=== PATIENT | female | born 1960 | race Caucasian/White ===

== ENCOUNTER 2017-12-27 15:53 | Emergency (ER) | payer BC ==
[2017-12-27 16:23] VITALS: BP 110/76
--- NOTE | 2017-12-27 16:27 | ED ---
HPI Chest Pain - HPI Summary HPI Summary: 57 yr old female with chest tightness, SOB, dizziness, fatigue. Onset of symptoms was about two days ago. Chest tightness is presently 5/10, and she has pain in between her shoulder blade area. She has a history of HTN. Family history of CAD. - History of Current Complaint Chief Complaint: UCGeneralIllness Time Seen by Provider: 12/27/17 16:12 Hx Last Menstrual Period: 08/15/14 Pain Intensity: 5 - Allergy/Home Medications Allergies/Adverse Reactions: Allergies Allergy/AdvReac Type Severity Reaction Status Date / Time Zdlhfir-Bow-Zwi Reductase Allergy Leg Cramps Verified 12/27/17 16:03 Inhibitor Home Medications: Home Medications Amlodipine Besylate [Norvasc] 10 mg PO DAILY 12/27/17 [History Confirmed ] Lisinopril/HCTZ 20/25(NF) [Zestoretic 20/25(NF)] 1 tab PO DAILY 12/27/17 [ History Confirmed 12/27/17] PMH/Surg Hx/FS Hx/Imm Hx Previously Healthy: Yes Cardiovascular History: Reports: Hx Hypertension Denies: Hx Pacemaker/ICD Sensory History: Denies: Hx Hearing Aid Psychiatric History: Denies: Hx Panic Disorder - Surgical History Surgery Procedure, Year, and Place: [facility] Infectious Disease History: No Infectious Disease History: Denies: History Other Infectious Disease, Traveled Outside the [place] in Last 30 Days - Family History Known Family History: Positive: Cardiac Disease - Social History Occupation: Employed Full-time Lives: With Family Alcohol Use: None Substance Use Type: Reports: None Smoking Status (MU): Never Smoked Tobacco Review of Systems Positive: Fatigue. Negative: Fever, Chills Negative: Sore Throat, Nasal Discharge Positive: Chest Pain Positive: Shortness Of Breath All Other Systems Reviewed And Are Negative: Yes Physical Exam Triage Information Reviewed: Yes Vital Signs On Initial Exam: Initial Vitals Temp Pulse Resp BP Pulse Ox 98 F 82 18 110/76 99 12/27/17 16:16 12/27/17 16:16 12/27/17 16:16 12/27/17 16:16 12/27/17 16:16 Vital Signs Reviewed: Yes Appearance: Positive: Well-Appearing, No Pain Distress Skin: Positive: Warm, Skin Color Reflects Adequate Perfusion Head/Face: Positive: Normal Head/Face Inspection Eyes: Positive: EOMI Neck: Positive: Nontender Respiratory/Lung Sounds: Positive: Clear to Auscultation, Breath Sounds Present Cardiovascular: Positive: RRR. Negative: Murmur Abdomen Description: Positive: Nontender Musculoskeletal: Positive: Strength/ROM Intact Neurological: Positive: Sensory/Motor Intact, Alert, Oriented to Person Place, Time, CN Intact II-III Psychiatric: Positive: Normal - Argelia Coma Scale Best Eye Response: 4 - Spontaneous Best Motor Response: 6 - Obeys Commands Best Verbal Response: 5 - Oriented Coma Scale Total: 15 Diagnostics - Vital Signs Vital Signs Temp Pulse Resp BP Pulse Ox 12/27/17 16:16 98 F 82 18 110/76 99 - Laboratory Lab Statement: Any lab studies that have been ordered have been reviewed, and results considered in the medical decision making process. - EKG 12/27/17 Cardiac Rate: NL EKG Rhythm: Sinus Rhythm ST Segment: Normal Ectopy: None Chest Pain Course/Dx - Course Course Of Treatment: 57 yr old female with chest tightness, sob, and dizziness. Plan transfer by ambulance to the ER for eval. - Diagnoses Provider Diagnoses: Chest tightness, Shortness of breath Discharge - Discharge Plan Condition: Good Disposition: TRANS HIGHER LVL OF CARE FAC Referrals: LEANN Elias [Primary Care Provider] -
[2017-12-27] MEDS: Aspirin Low Dose CHEW TAB* 81 MG PO ONE (16:33)
== END 2017-12-27 16:42 | disposition short-term general hospital (02) ==
LOC: UCCORT 15:53
DX: R07.89 Other chest pain (principal); R06.02 Shortness of breath; I10 Essential (primary) hypertension; Z82.49 Family history of ischemic heart disease and other diseases of the circulatory system
CPT/HCPCS: 93005; 99203; A9270-GY; G0463

== ENCOUNTER 2018-04-02 18:47 | Emergency (ER) | payer BC ==
[2018-04-02 19:35] VITALS: BP 123/66
[2018-04-02] MEDS ORDERED: DOXYcycline CAP(*) 100 MG PO ONE (19:53)
--- NOTE | 2018-04-02 20:11 | UC ---
Skin Complaint HPI - HPI Summary HPI Summary: Pt c/o of tick bite to left lateral ankle, pt removed tick at home and thinks it has been attached for 24-48 hours. - History of Current Complaint Chief Complaint: UCSkin Time Seen by Provider: 04/02/18 19:45 Stated Complaint: TICK BITE Hx Obtained From: Patient Hx Last Menstrual Period: 08/15/14 ?: No Onset/Duration: Sudden Onset, Lasting Days Skin Exposure Onset/Duration: Days Ago Timing: Constant Onset Severity: Mild Current Severity: Mild Pain Intensity: 3 Pain Scale Used: 0-10 Numeric Location: Discrete - left lateral ankle Character: Redness Aggravating Factor(s): Nothing Alleviating Factor(s): Nothing Associated Signs & Symptoms: Positive: Negative Related History: Insect Bite/Sting - Allergy/Home Medications Allergies/Adverse Reactions: Allergies Allergy/AdvReac Type Severity Reaction Status Date / Time Mxmcrjm-Gvg-Mip Reductase Allergy Leg Cramps Verified 04/02/18 19:36 Inhibitor Home Medications: Home Medications Aspirin 81 mg CHEW TAB* [Aspirin Low Dose TAB*] 81 mg PO DAILY 04/02/18 [ History Confirmed 04/02/18] Ezetimibe TAB* [Zetia TAB*] 10 mg PO DAILY 04/02/18 [History Confirmed 04/02/18] Review of Systems Constitutional: Negative Skin: Other - mild erythema left lateral anle Eyes: Negative ENT: Negative Respiratory: Negative Cardiovascular: Negative Gastrointestinal: Negative Genitourinary: Negative Motor: Negative Neurovascular: Negative Musculoskeletal: Negative Neurological: Negative Psychological: Negative Is Patient Immunocompromised?: No All Other Systems Reviewed And Are Negative: Yes PMH/Surg Hx/FS Hx/Imm Hx Previously Healthy: Yes - Surgical History Surgical History: Yes Surgery Procedure, Year, and Place: [facility] - Family History Known Family History: Positive: Cardiac Disease - Social History Occupation: Employed Full-time Lives: With Family Alcohol Use: None Substance Use Type: None Smoking Status (MU): Never Smoked Tobacco Have You Smoked in the Last Year: No Physical Exam Triage Information Reviewed: Yes Appearance: Well-Appearing Vital Signs: Initial Vital Signs Temp 97.7 F 04/02/18 19:30 Pulse 69 04/02/18 19:30 Resp 16 04/02/18 19:30 BP 123/66 04/02/18 19:30 Pulse Ox 100 04/02/18 19:30 Vital Signs Reviewed: Yes Eye Exam: Normal ENT: Positive: Hearing grossly normal Neck exam: Normal Respiratory: Positive: No respiratory distress Musculoskeletal Exam: Normal Neurological Exam: Normal Psychological Exam: Normal Skin Exam: Other - mild erythema, lower lateral ankle. Course/Dx - Differential Diagnoses - Skin Complaint Differential Diagnoses: Tick Born Illness - Diagnoses Provider Diagnoses: tick bite. tick removed Discharge - Sign-Out/Discharge Documenting (check all that apply): Discharge/Admit/Transfer - Discharge Plan Condition: Stable Disposition: HOME Patient Education Materials: Tick Bite (ED) Referrals: Corina Pandya MD [Primary Care Provider] - If Needed - Billing Disposition and Condition Condition: STABLE Disposition: HOME
== END 2018-04-02 20:05 | disposition home or self-care (01) ==
LOC: UCCORT 18:47
DX: S90.862A Insect bite (nonvenomous), left foot, initial encounter (principal); W57.XXXA Bitten or stung by nonvenomous insect and other nonvenomous arthropods, initial encounter; Y93.9 Activity, unspecified; Y92.9 Unspecified place or not applicable; Z88.8 Allergy status to other drugs, medicaments and biological substances
CPT/HCPCS: 99212; A9270-GY; G0463

== ENCOUNTER 2023-04-27 05:38 | Observation (INO) ==
[~2023-04-27 05:38] MED LIST: Naloxone 0.4 mg VIAL 0.4 mg/ml 1 ml VIAL IV PRN; Ondansetron 4 mg VIAL 2 MG/ML 2 ml VIAL IV PRN; Tranexamic Acid 1,000 MG/10 ML 1,000 MG in NS 0.9% 50 ML 50 ML IV SCH; fentaNYL 100 mcg/2 ml 50 MCG/ML VIAL IV PRN
[2023-04-27] MEDS ORDERED: Lactated Ringers 1000 ml BAG 1,000 ML IV SCH (06:00)
[2023-04-27] MEDS ORDERED: Buffered Lidocaine 1% SYRIN 1 ml INTRADERM ONE (06:00)
[2023-04-27] MEDS ORDERED: ceFAZolin 2 GM in NS PREMIX 2 GM/100 ML BAG IVPB ONE (06:09)
[2023-04-27] MEDS ORDERED: Dexamethasone IV 4 MG/ML VIAL 1 ml VIAL ONE ×3 (06:40→08:44)
[2023-04-27] MEDS ORDERED: Bupivacaine 0.5% SDV PF 30ML VIAL ONE (06:40)
[2023-04-27] MEDS ORDERED: Midazolam 2 mg/2 ml VIAL 1 mg/ml 2 ml VIAL (2 mg) ONE ×2 (06:40→07:15)
[2023-04-27] MEDS ORDERED: ROPIVACAINE 5 MG/ML 30 ML BTL (0.5%) ONE (06:51)
[2023-04-27 07:05] LABS: Rapid COVID-19 Molecular Undetected (Undetected)
[2023-04-27] MEDS ORDERED: fentaNYL 100 mcg/2 ml 50 MCG/ML VIAL ONE (07:15)
[2023-04-27] MEDS ORDERED: HYDROmorphone 0.5 MG/0.5 ML SYRINGE ONE ×4 (07:58→08:22)
[2023-04-27] MEDS ORDERED: Acetaminophen IV 1 GM/100ML 1,000 MG/100 ML BAG IV ONE (08:08)
[2023-04-27] MEDS ORDERED: Magnesium Hydroxide LIQ 30 ML UDC PO PRN (08:35)
[2023-04-27] MEDS ORDERED: Ondansetron ODT 4 mg TAB 4 MG TAB PO PRN (08:35)
[2023-04-27] MEDS ORDERED: Lactulose 30 ml UDC PO PRN (08:35)
[2023-04-27] MEDS ORDERED: Morphine 2 MG/ML SYRINGE IV PRN (08:35)
[2023-04-27] MEDS ORDERED: Ondansetron 4 mg VIAL 2 MG/ML 2 ml VIAL ONE ×2 (08:44)
[2023-04-27] MEDS ORDERED: Lidocaine 2% PF 5 ML VIAL ONE (08:45)
[2023-04-27] MEDS: Lactated Ringers 1000 ml BAG 1,000 ML IV SCH ×2 (11:40→23:20)
[2023-04-27] MEDS ORDERED: Propofol 10 MG/ML 20 ML BTL ONE (13:31)
[2023-04-27] MEDS: Ondansetron 4 mg VIAL 2 MG/ML 2 ml VIAL IV PRN (14:34)
[2023-04-27] MEDS: Vitamin THERAPEUTIC TAB PO SCH (15:31)
[2023-04-27] MEDS: Magnesium Hydroxide LIQ 30 ML UDC PO SCH ×2 (15:31→20:07)
[2023-04-27] MEDS: ceFAZolin 1 GM ADVAN 1 GM in NS 0.9% 50 ML 50 ML IVPB SCH (17:59)
[2023-04-28] MEDS: ceFAZolin 1 GM ADVAN 1 GM in NS 0.9% 50 ML 50 ML IVPB SCH ×2 (00:08→08:45)
[2023-04-28] MEDS: Ondansetron 4 mg VIAL 2 MG/ML 2 ml VIAL IV PRN (03:23)
[2023-04-28 06:28] LABS: Hematocrit 31.3 % (35-45); Hemoglobin 10.9 g/dL (11.5-14.3); Mean Platelet Volume 8.3 fL (7.5-11.2); Platelet Count 135 10^3/uL (150-450)
[2023-04-28 06:44] LABS: Calcium 8.5 mg/dL (8.6-10.3); Creatinine, Serum 0.98 mg/dL (0.51-0.95); Potassium 4.3 mmol/L (3.5-5.0); eGFR CKD-EPI 66.1 (>60)
[2023-04-28] MEDS: Magnesium Hydroxide LIQ 30 ML UDC PO SCH (08:46)
[2023-04-28] MEDS: Vitamin THERAPEUTIC TAB PO SCH (08:49)
[2023-04-28 10:37] VITALS: BP 137/76
== END 2023-04-28 13:36 | disposition home or self-care (01) ==
LOC: AA 05:38 → INTOOBSV 05:38 → SSU 08:35
PROVIDERS: ADMIT Orthopaedic Surgery Adult Reconstructive Orthopaedic Surgery; ATTEND Orthopaedic Surgery Adult Reconstructive Orthopaedic Surgery